=== PATIENT | male | born 1990 | race Two or more races ===

== ENCOUNTER 2017-07-13 22:52 | Emergency (ER) | payer BC, MEDICAID ==
[~2017-07-13] VITALS: Ht 165.1 cm; Wt 97.5 kg
[2017-07-13] MEDS ORDERED: IBUPROFEN 800 MG TABLET ONE (23:27)
[2017-07-13] MEDS ORDERED: IBUPROFEN 800 MG TABLET PO ONE (23:30)
--- NOTE | 2017-07-14 00:33 | NUR ---
Patient discharged to home in stable conditon. Written and verbal after care instructions given. Patient verbalizes understanding of instructions.
== END 2017-07-14 00:34 | disposition home or self-care (01) ==
LOC: ER 22:55
DX: M54.5 Low back pain (principal); V43.52XA Car driver injured in collision with other type car in traffic accident, initial encounter; Y93.89 Activity, other specified; Y92.410 Unspecified street and highway as the place of occurrence of the external cause; Y99.8 Other external cause status
CPT/HCPCS: 72040; 99284; A4663